=== PATIENT | female | born 1950 | race Caucasian/White ===

== ENCOUNTER 2017-02-12 18:40 | Emergency (ER) | payer MEDICARE ==
[2017-02-12 19:47] LABS: BASOPHIL 0.9 % (0-2); EOSINOPHIL 0.9 % (0-7); HCT 46.7 % (37.0-47.0); HGB 16.4 g/dl (12.5-16.0); LYMPHOCYTE 32.1 % (15-48); MCH 33.5 pg (25.0-31.0); MCHC 35.1 g/dL (32.0-36.0); MCV 95.5 fL (78.0-100.0); MONOCYTE 14.7 % (0-12); MPV 9.4 fL (6.0-9.5); NEUTROPHIL 51.4 % (41-80); PLT 202 K/uL (150-400); RBC 4.89 M/uL (4.20-5.40); RDW 13.6 % (11.5-14.0); WBC 3.5 K/uL (4.0-10.5)
[2017-02-12 19:49] LABS: BILIRUBIN NEGATIVE (NEGATIVE); BLOOD NEGATIVE Ery/uL (NEGATIVE); CLARITY CLEAR (CLEAR); COLOR YELLOW (YELLOW); GLUCOSE (U) NORMAL (NORMAL); KETONE (U) NEGATIVE (NEGATIVE); LEUKOCYTES NEGATIVE Leu/uL (NEGATIVE); NITRITE NEGATIVE (NEGATIVE); PROTEIN NEGATIVE (NEGATIVE); SPECIFIC GRAVITY 1.025 (1.001-1.030); UROBILINOGEN 0.2 mg/dL (0.2-1.0)
[2017-02-12 20:06] LABS: CREATININE 0.6 mg/dL (0.5-1.0); POTASSIUM 3.7 mmol/L (3.5-5.1)
[2017-02-12 21:00] LABS: CKMB 2.19 ng/mL (0.97-4.94); TROPONIN T < 0.010 ng/mL
== END 2017-02-12 23:15 | disposition home or self-care (01) ==
LOC: FER 18:40
PROVIDERS: Nurse Practitioner Family
DX: J06.9 Acute upper respiratory infection, unspecified (principal); R07.89 Other chest pain; R53.81 Other malaise; R53.83 Other fatigue; I51.9 Heart disease, unspecified; E78.5 Hyperlipidemia, unspecified; F17.210 Nicotine dependence, cigarettes, uncomplicated
CPT/HCPCS: 36415; 71020; 80048; 81003; 82550; 82553; 84484; 85025; 87804; 87899; 93005

== ENCOUNTER → 2021-01-18 | Day surgery (SDC) | payer MEDICARE ==
[~2021-01-18] VITALS: Ht 160 cm; Wt 44.0 kg
[~2021-01-18] MED LIST: ASPIRIN CHEWABL81 MG PO; HCTZ12.5 MG PO; LIPITOR 10MG TA10 MG PO; MOBIC7.5 MG PO; PEPCID AC20 MG PO; VALTREX 500MG500 MG PO
[2021-01-18 08:06] LABS: HGB 16.1 g/dl (12.5-16.0); MCH 33.5 pg (25.0-31.0); MCHC 34.3 g/dL (32.0-36.0); MCV 97.7 fL (78.0-100.0); MPV 9.4 fL (6.0-9.5); RBC 4.81 M/uL (4.20-5.40); RDW 12.1 % (11.5-14.0); WBC 5.5 K/uL (4.0-10.5)
[2021-01-18 08:31] LABS: ALBUMIN 3.6 g/dL (3.4-5.0); BILIRUBIN - TOTAL 0.7 mg/dL (0.2-1.0); BUN/CREAT RATIO (CALC) 22.2 RATIO; CREATININE 0.54 mg/dL (0.51-0.95); GLOBULIN (CALCULATION) 3.6 g/dL; POTASSIUM 3.7 mmol/L (3.5-5.1); TOTAL PROTEIN 7.2 g/dL (6.4-8.2)
== END | disposition home or self-care (01) ==
LOC: FAS 01-06 08:00
PROVIDERS: Surgery
DX: K64.0 First degree hemorrhoids (principal); K63.5 Polyp of colon; I10 Essential (primary) hypertension; F31.9 Bipolar disorder, unspecified; F17.210 Nicotine dependence, cigarettes, uncomplicated; G43.909 Migraine, unspecified, not intractable, without status migrainosus; J44.9 Chronic obstructive pulmonary disease, unspecified; M19.90 Unspecified osteoarthritis, unspecified site; M81.0 Age-related osteoporosis without current pathological fracture; M41.9 Scoliosis, unspecified; R42 Dizziness and giddiness; Z79.899 Other long term (current) drug therapy; Z98.890 Other specified postprocedural states; Z98.51 Tubal ligation status; Z20.822 Contact with and (suspected) exposure to COVID-19
CPT/HCPCS: 36415; 80053; 88305; J2704; J7120